=== PATIENT | female | born 1975 | race Caucasian/White ===

== ENCOUNTER → 2018-12-03 | Outpatient (CLI) | payer BC ==
--- NOTE | 2018-12-03 21:34 | Diagnostic Imaging Report ---
INDICATION: Screening TECHNIQUE: The current study was also evaluated with a Computer Aided Detection (CAD) system. 3-D Tomographic imaging was also performed. COMPARISON: No prior examinations are available for comparison. This is a baseline exam. FINDINGS: There are scattered fibroglandular densities bilaterally. There is no dominant mass, spiculated lesion or suspicious calcification identified. The skin, nipples and axillae are unremarkable. There are benign lymph nodes in the axilla. IMPRESSION: Category 1, negative. ACR BI-RADS Category 1: Negative. Result letter will be mailed to the patient. Note: At least 10% of breast cancer is not imaged by mammography. Dictated by: Dictated on workstation # [id number]
== END ==
LOC: RAD 08:18
PROVIDERS: ATTEND Nurse Practitioner Family
DX: Z12.31 Encounter for screening mammogram for malignant neoplasm of breast (principal)
CPT/HCPCS: 77067

== ENCOUNTER → 2019-02-27 | Outpatient (CLI) | payer BC ==
[~2019-02-27] MED LIST: ALPR0.254 PO; ESCI10TA PO; LEVO500T2 PO
--- NOTE | 2019-02-27 15:37 | Diagnostic Imaging Report ---
INDICATION: Left breast abscess. COMPARISON: No prior ultrasound is available for comparison. Patient did have a normal screening mammogram on 12/03/2018. FINDINGS: Sonographic interrogation of the area of concern in the left breast was performed, corresponding to the 8 o'clock location, 11 cm from the nipple. There is a region of hypoechogenicity at this location just below the skin surface, which appears to be fairly well circumscribed. This area measures 9 mm x 5 mm x 9 mm. No internal vascularity is present. There is a small hypoechoic tract extending from this. No other abnormalities are seen. IMPRESSION: Hypoechoic complex nodule at the 8 o'clock location in the left breast, 11 cm from the nipple. It is possible this represents an inflammatory lesion such as a very small abscess. There does appear to be a tract extending from it. Other etiologies cannot be entirely excluded, therefore short interval follow-up would be recommended. Repeat left breast ultrasound after course of antibiotic therapy would be recommended to confirm stability and/or resolution. If this persists, biopsy could be performed. ACR BI-RADS Category 3: Probably benign findings. Dictated by: Dictated on workstation # [id number]
== END ==
LOC: RAD 15:00
PROVIDERS: ATTEND Surgery
DX: N63.24 Unspecified lump in the left breast, lower inner quadrant (principal); N61.1 Abscess of the breast and nipple
CPT/HCPCS: 76642

== ENCOUNTER 2019-02-28 05:39 | Outpatient (CLI) | payer BC ==
[~2019-02-28] VITALS: Ht 152.4 cm; Wt 77.3 kg
[2019-02-28] MEDS ORDERED: ALPR0.254 PO (10:06)
[2019-02-28] MEDS ORDERED: ESCI10TA PO (10:06)
[2019-02-28] MEDS ORDERED: LEVO500T2 PO (10:06)
== END 2019-02-28 10:21 | disposition home or self-care (01) ==
LOC: PREOP 05:39
PROVIDERS: ATTEND Surgery
DX: Z01.818 Encounter for other preprocedural examination (principal)

== ENCOUNTER → 2020-11-27 | Outpatient (CLI) | payer BC ==
[~2020-11-27] MED LIST changes: +ALPR.25T PO; -ALPR0.254 PO
== END ==
LOC: LABNPT 05:54
PROVIDERS: ATTEND Family Medicine
DX: Z53.9 Procedure and treatment not carried out, unspecified reason (principal)